=== PATIENT | female | born 2000 | race Caucasian/White ===

== ENCOUNTER 2019-12-25 17:22 | Emergency (ER) | payer OTHER ==
[~2019-12-25] VITALS: Ht 152.4 cm; Wt 90.7 kg
[2019-12-25 17:35] VITALS: Ht 152.4 cm; Wt 90.7 kg
[2019-12-25 20:10] LABS: PLATELET COUNT 186 x10^3mcL (130-400); RED CELL DISTRIBUTION WIDTH 13.8 % (11.5-14.5)
[2019-12-25 20:14] LABS: CALCIUM 8.8 mg/dL (8.5-10.1); CARBON DIOXIDE 24.6 mmol/L (21-32); CHLORIDE SERUM 102 mmol/L (98-107); CREATININE SERUM 0.7 mg/dL (0.6-1.0); GFR1 > 60 mL/min; GLUCOSE SERUM 94 mg/dL (74-106); POTASSIUM SERUM 3.8 mmol/L (3.5-5.1); SODIUM SERUM 133 mmol/L (136-145)
[2019-12-25 20:18] LABS: ALKALINE PHOSPHATASE 61 U/L (46-116); ALT/SGPT 89 U/L (14-59); AST/SGOT 96 U/L (15-37); BILIRUBIN TOTAL 0.3 mg/dL (0.20-1.00); TOTAL PROTEIN, SERUM 6.9 g/dL (6.4-8.2)
[2019-12-25] MEDS ORDERED: AUGMENTIN 875-1 EACH PO (20:18)
[2019-12-25 20:20] LABS: ALBUMIN 3.1 g/dL (3.4-5.0)
[2019-12-25 20:20] LABS: AMPHETAMINE QUAL UR NONE DETECTED (See below)
[2019-12-25] MEDS ORDERED: LEXAPRO10 MG PO (20:20)
[2019-12-25] MEDS ORDERED: LITHOBID300 MG PO (20:21)
[2019-12-26 17:57] VITALS: BP 130/70
== END 2019-12-25 17:57 | disposition short-term general hospital (02) ==
LOC: ED 17:22
PROVIDERS: Emergency Medicine
DX: F31.9 Bipolar disorder, unspecified (principal); F12.20 Cannabis dependence, uncomplicated; G47.00 Insomnia, unspecified; J45.909 Unspecified asthma, uncomplicated; Z88.8 Allergy status to other drugs, medicaments and biological substances; Z20.828 Contact with and (suspected) exposure to other viral communicable diseases
CPT/HCPCS: G0480; J2060; U0003

== ENCOUNTER 2020-02-12 13:10 | Emergency (ER) | payer OTHER, MEDICAID, SELFPAY ==
[~2020-02-12] VITALS: Ht 152.4 cm; Wt 104.3 kg
[~2020-02-12 13:10] MED LIST: AUGMENTIN 875-1 EACH PO; LEXAPRO10 MG PO; LITHOBID300 MG PO
[2020-02-12 13:13] VITALS: Ht 152.4 cm; Wt 104.3 kg
[2020-02-12 16:03] VITALS: BP 115/74
== END 2020-02-12 16:03 | disposition home or self-care (01) ==
LOC: ED 13:10
DX: U07.1 COVID-19 (principal); J45.909 Unspecified asthma, uncomplicated; Z91.011 Allergy to milk products
CPT/HCPCS: U0003